=== PATIENT | female | born 1980 | race Two or more races ===

== ENCOUNTER 2017-05-27 11:32 | Emergency (ER) | payer BC ==
[~2017-05-27] VITALS: Ht 160 cm; Wt 67.0 kg
[2017-05-27] MEDS ORDERED: KETOROLAC 60MG/2ML VIAL IM ONE (12:00)
[2017-05-27 12:19] VITALS: BP 127/77
== END 2017-05-27 12:21 | disposition home or self-care (01) ==
LOC: ER 11:58
DX: M54.5 Low back pain (principal); F17.200 Nicotine dependence, unspecified, uncomplicated; Z90.49 Acquired absence of other specified parts of digestive tract; Z87.828 Personal history of other (healed) physical injury and trauma; X50.0XXA Overexertion from strenuous movement or load, initial encounter; Y93.89 Activity, other specified; Y92.018 Other place in single-family (private) house as the place of occurrence of the external cause
CPT/HCPCS: 81025; 96372; 99283; J1885